=== PATIENT | male | born 1980 | race Caucasian/White ===

== ENCOUNTER 2022-02-16 13:35 | Emergency (ER) | payer MEDICAID ==
[~2022-02-16] VITALS: Ht 188 cm; Wt 151.0 kg
[~2022-02-16 13:35] MED LIST: AMOX-999 PO; ATOR40TA PO; CLIN300C2 PO; INSU100S22 SUBQ; LISI-487 PO; METF-1253 PO
[2022-02-16 13:40] VITALS: BP 162/87
--- NOTE | 2022-02-16 14:27 | NUR ---
41/m AAOx4, ambulatory, able to make needs known came to ED c/o abdominal swelling and BLE swelling s/p Amputation of left foot toes a month ago. Stated he was taking medications after Sx and developed swelling. Denies any pain, no active bleeding on sx site, covered with roberth. pmh: DM, HTN, HLD meds hx; Metformin, lisinopril, cholesterol med.
[2022-02-16 14:49] LABS: BASOPHILS # (AUTO) 0.1 K/uL (0.00-0.22); BASOPHILS % (AUTO) 1.2 % (0.0-2.0); EOSINOPHILS # (AUTO) 0.3 K/uL (0-0.4); EOSINOPHILS % (AUTO) 4.5 % (0.0-4.0); HEMATOCRIT 25.8 % (36-52); HEMOGLOBIN 8.3 g/dL (12.0-18.0); LYMPHOCYTES % (AUTO) 27.7 % (20.5-51.1); MEAN CORPUSCULAR HEMOGLOBIN 26 pg (27-31); MEAN CORPUSCULAR HGB CONC 32 g/dL (33-37); MEAN CORPUSCULAR VOLUME 82.3 fL (80-94); MONOCYTES # (AUTO) 0.5 K/uL (0.8-1.0); MONOCYTES % (AUTO) 7.6 % (1.7-9.3); NEUTROPHILS # (AUTO) 4.2 K/uL (1.8-7.7); PLATELET COUNT (AUTO) 290 K/uL (140-450); RED BLOOD CELL COUNT(AUTO) 3.13 MIL/uL (4.20-6.10); RED CELL DISTRIBUTION WIDTH 17.9 % (11.6-13.7); WHITE BLOOD COUNT (AUTO) 7.2 K/uL (4.8-10.8)
[2022-02-16 15:16] LABS: ALBUMIN 2.5 g/dL (3.4-5.0); ANION GAP 10.2 (8-16); CARBON DIOXIDE 30.2 mmol/L (21-32); CREATININE 1.7 mg/dL (0.6-1.3); POTASSIUM 4.4 mmol/L (3.5-5.1); TOTAL BILIRUBIN 0.2 mg/dL (0.0-1.0)
[2022-02-16 16:15] LABS: LIPASE 60 U/L (73-393)
[2022-02-16] MEDS ORDERED: FURO-572 PO (16:16)
[2022-02-16] MEDS: FUROSEMIDE 20 MG/2 ML VIAL IVP ONE (16:24)
[2022-02-16 16:45] VITALS: BP 150/80
--- NOTE | 2022-02-16 16:53 | NUR ---
Patient discharged with v/s stable. Written and verbal after care instructions given and explained. Patient alert, oriented and verbalized understanding of instructions. Ambulatory with steady gait. All questions addressed prior to discharge. ID band removed. Patient advised to follow up with PMD. Rx of Furosemide given. Patient educated on indication of medication including possible reaction and side effects. Opportunity to ask questions provided and answered.
== END 2022-02-16 16:45 | disposition home or self-care (01) ==
LOC: MED 13:35
DX: K31.89 Other diseases of stomach and duodenum (principal); R60.0 Localized edema; E11.9 Type 2 diabetes mellitus without complications; I10 Essential (primary) hypertension; Z79.4 Long term (current) use of insulin; Z79.899 Other long term (current) drug therapy; Z98.890 Other specified postprocedural states
CPT/HCPCS: 36415; 71045; 74176; 80053; 83690; 83880; 84484; 85025; 93005; 96374; 99285; J1940